=== PATIENT | male | born 1950 | race Two or more races ===

== ENCOUNTER → 2019-07-13 | Outpatient (CLI) | payer BC ==
[2019-07-13 07:56] LABS: Basophils # (auto) 0.1 uL; Basophils % (auto) 2.8 % (0.0-2.0); Eosinophils # (auto) 0.1 uL; Eosinophils % (auto) 2.5 % (0.0-7.0); Hemoglobin 15.5 g/dL (13.5-17.5); Lymphocytes # (auto) 1.6 uL; Lymphocytes % (auto) 34.6 % (10.0-50.0); Mean Corpuscular Hemoglobin 30.9 pg (28.0-32.0); Mean Corpuscular Hgb Conc. 34.5 g/dL (32.0-36.0); Mean Corpuscular Volume 89.6 fL (80.0-100.0); Monocytes # (auto) 0.4 uL; Monocytes % (auto) 9.6 % (0.0-12.0); Neutrophils # (auto) 2.3 uL; Neutrophils % (auto) 50.5 % (37.0-80.0); Nucleated Red Blood Cells % 0.1 %; Platelet Count (auto) 250 10^3/uL (140-450); Red Blood Cells 5.03 10^6/uL (4.5-5.90); Red Cell Distribution Width 13.3 % (11.8-14.3); White Blood Cell 4.6 10^3/uL (4.4-10.8)
[2019-07-13 08:01] LABS: Urine Bacteria NONE SEEN /hpf (None Seen); Urine Blood Negative /uL (Negative); Urine Specific Gravity 1.012 (1.001-1.035); Urine WBC 1 /hpf (0 - 3)
[2019-07-13 08:42] LABS: Potassium 4.6 mmol/L (3.5-5.1)
[2019-07-13 08:49] LABS: Albumin 4.2 g/dL (3.4-5.0); BUN/Creatinine Ratio 10.9; Bilirubin, Total 0.6 mg/dL (0.2-1.0); Calcium 9.4 mg/dL (8.5-10.1); Total Protein 7.4 g/dL (6.4-8.2)
== END | disposition home or self-care (01) ==
LOC: LAB 07:15
PROVIDERS: ATTEND Family Medicine
DX: Z12.5 Encounter for screening for malignant neoplasm of prostate (principal); I10 Essential (primary) hypertension; E78.49 Other hyperlipidemia
CPT/HCPCS: 36415; 80053; 80061; 81001; 84153; 85025

== ENCOUNTER → 2020-03-29 | Outpatient (CLI) | payer BC | END | disposition home or self-care (01) | LOC: XYW 08:30 | PROVIDERS: ATTEND Internal Medicine | DX: I11.9 Hypertensive heart disease without heart failure (principal) | CPT/HCPCS: 93306 ==

== ENCOUNTER → 2020-07-26 | Outpatient (CLI) | payer BC ==
[2020-07-26 07:52] LABS: Basophils # (auto) 0.1 10 ^3/uL (0-0.2); Basophils % (auto) 1.1 % (0.0-2.0); Eosinophils # (auto) 0 10 ^3/uL (0-0.8); Hematocrit 48.4 % (41.0-53.0); Hemoglobin 16.5 g/dL (13.5-17.5); Lymphocytes # (auto) 1.5 10 ^3/uL (0.4-5.4); Lymphocytes % (auto) 28.7 % (10.0-50.0); Mean Corpuscular Hemoglobin 30.8 pg (28.0-32.0); Mean Corpuscular Hgb Conc. 34.1 g/dL (32.0-36.0); Mean Corpuscular Volume 90.2 fL (80.0-100.0); Monocytes # (auto) 0.5 10 ^3/uL (0-1.3); Monocytes % (auto) 9.2 % (0.0-12.0); Neutrophils # (auto) 3.1 10 ^3/uL (1.6-8.6); Nucleated Red Blood Cells % 0.5 %; Platelet Count (auto) 276 10^3/uL (140-450); Red Blood Cells 5.36 10^6/uL (4.5-5.90); Red Cell Distribution Width 13.2 % (11.8-14.3); White Blood Cell 5.1 10^3/uL (4.4-10.8)
[2020-07-26 07:59] LABS: Urine Bacteria NONE SEEN /hpf (None Seen); Urine Blood Negative /uL (Negative); Urine Specific Gravity 1.017 (1.001-1.035); Urine WBC 1 /hpf (0 - 3)
[2020-07-26 08:48] LABS: Albumin 4.1 g/dL (3.4-5.0); BUN/Creatinine Ratio 19.3; Calcium 9.8 mg/dL (8.5-10.1); Potassium 5.3 mmol/L (3.5-5.1)
[2020-07-26 08:51] LABS: Bilirubin, Total 0.5 mg/dL (0.2-1.0); Total Protein 7.7 g/dL (6.4-8.2)
== END | disposition home or self-care (01) ==
LOC: LAB 07:28
PROVIDERS: ATTEND Family Medicine
DX: Z12.11 Encounter for screening for malignant neoplasm of colon (principal); I10 Essential (primary) hypertension; E78.49 Other hyperlipidemia
CPT/HCPCS: 36415; 80053; 80061; 81001; 82270; 82306; 84153; 85025

== ENCOUNTER → 2020-08-27 | Outpatient (CLI) | payer BC ==
[2020-08-27 08:27] LABS: Calcium 9.5 mg/dL (8.5-10.1); Potassium 4.3 mmol/L (3.5-5.1)
[2020-08-27 08:31] LABS: BUN/Creatinine Ratio 14.4
== END | disposition home or self-care (01) ==
LOC: LAB 07:10
PROVIDERS: ATTEND Family Medicine
DX: E78.5 Hyperlipidemia, unspecified (principal)
CPT/HCPCS: 36415; 80048

== ENCOUNTER → 2021-07-07 | Outpatient (CLI) | payer BC ==
[2021-07-07 09:18] LABS: Basophils # (auto) 0.1 10 ^3/uL (0-0.2); Eosinophils # (auto) 0.1 10 ^3/uL (0-0.8); Hematocrit 48.1 % (41.0-53.0); Hemoglobin 16.2 g/dL (13.5-17.5); Lymphocytes # (auto) 1.5 10 ^3/uL (0.4-5.4); Lymphocytes % (auto) 23.9 % (10.0-50.0); Mean Corpuscular Hemoglobin 30.1 pg (28.0-32.0); Mean Corpuscular Hgb Conc. 33.6 g/dL (32.0-36.0); Mean Corpuscular Volume 89.7 fL (80.0-100.0); Monocytes # (auto) 0.6 10 ^3/uL (0-1.3); Monocytes % (auto) 9.4 % (0.0-12.0); Neutrophils % (auto) 64.7 % (37.0-80.0); Nucleated Red Blood Cells % 0.1 %; Red Blood Cells 5.36 10^6/uL (4.5-5.90); Red Cell Distribution Width 13.1 % (11.8-14.3); White Blood Cell 6.2 10^3/uL (4.4-10.8)
[2021-07-07 09:30] LABS: Potassium 4.7 mmol/L (3.5-5.1)
[2021-07-07 09:48] LABS: Albumin 4.1 g/dL (3.4-5.0); BUN/Creatinine Ratio 13.1; Bilirubin, Total 0.6 mg/dL (0.2-1.0); Calcium 9.8 mg/dL (8.5-10.1); Total Protein 7.2 g/dL (6.4-8.2)
== END | disposition home or self-care (01) ==
LOC: LAB 06:45
PROVIDERS: ATTEND Student in an Organized Health Care Education/Training Program
DX: I10 Essential (primary) hypertension (principal); E78.49 Other hyperlipidemia
CPT/HCPCS: 36415; 80053; 80061; 85025

== ENCOUNTER → 2024-07-12 | Outpatient (CLI) | payer BC ==
[2024-07-12 07:11] LABS: Alanine Aminotransferase 33 U/L (7-40); Alkaline Phosphatase 78 U/L (46-116); Anion Gap 7 (5-15); Aspartate Aminotransferase 23 U/L (13-40); BUN/Creatinine Ratio 9.6 (10.0-20.0); Blood Urea Nitrogen 12 mg/dL (9-23); Carbon Dioxide 27 mmol/L (20-31); Chloride 100 mmol/L (98-107); Glucose 102 mg/dL (74-106); LDL Cholesterol 87 mg/dL (< 100); Triglycerides 79 mg/dL (< 150)
[2024-07-12 07:12] LABS: Cholesterol 152 mg/dL (< 200); HDL Cholesterol 51 mg/dL (40-59)
[2024-07-12 07:13] LABS: Bilirubin, Total 0.8 mg/dL (0.2-1.0)
[2024-07-12 07:17] LABS: Albumin 4.9 g/dL (3.2-4.8); Calcium 10.6 mg/dL (8.7-10.4); Sodium 134 mmol/L (136-145)
[2024-07-12 07:18] LABS: Basophils # (auto) 0.1 10 ^3/uL (0-0.2); Eosinophils # (auto) 0.1 10 ^3/uL (0-0.8); Hematocrit 45.7 % (41.0-53.0); Hemoglobin 15.5 g/dL (13.5-17.5); Lymphocytes # (auto) 1.8 10 ^3/uL (0.4-5.4); Mean Corpuscular Hemoglobin 30.5 pg (28.0-32.0); Mean Corpuscular Hgb Conc. 33.8 g/dL (32.0-36.0); Mean Corpuscular Volume 90.3 fL (80.0-100.0); Monocytes # (auto) 0.6 10 ^3/uL (0-1.3); Monocytes % (auto) 10.4 % (0.0-12.0); Neutrophils # (auto) 2.9 10 ^3/uL (1.6-8.6); Neutrophils % (auto) 53.6 % (37.0-80.0); Nucleated Red Blood Cells % 0.2 %; Platelet Count (auto) 269 10^3/uL (140-450); Red Blood Cells 5.06 10^6/uL (4.5-5.90); Red Cell Distribution Width 13.2 % (11.8-14.3); White Blood Cell 5.3 10^3/uL (4.4-10.8)
== END | disposition home or self-care (01) ==
LOC: LAB 06:16
PROVIDERS: ATTEND Nurse Practitioner
DX: I10 Essential (primary) hypertension (principal); E78.5 Hyperlipidemia, unspecified; E03.9 Hypothyroidism, unspecified; R73.9 Hyperglycemia, unspecified
CPT/HCPCS: 36415; 80053; 80061; 82274; 83036; 84153; 84443; 85025